=== PATIENT | male | born 1985 | race African-American/Black ===

== ENCOUNTER 2016-12-06 03:31 | Emergency (ER) | payer MEDICARE ==
[~2016-12-06] VITALS: Ht 182.9 cm; Wt 54.0 kg
[2016-12-06] MEDS ORDERED: OLANZAPINE 10 MG/VIAL IM ONE (04:15)
[2016-12-06 04:31] LABS: BASOPHILS % 0.7 % (0.0-2.0); EOSINOPHILS % 0.1 % (0.0-5.0); HEMATOCRIT. 45.6 % (42.0-52.0); HEMOGLOBIN. 15.8 g/dL (14.0-18.0); LYMPHOCYTES % 18.8 % (20.0-50.0); MEAN CORPUSCULAR HEMOGLOBIN 31.8 pg (28.0-32.0); MEAN CORPUSCULAR HGB CONC 34.6 g/dL (31.0-37.0); MEAN PLATELET VOLUME 8.9 fl (7.4-10.4); MONOCYTES % 10.2 % (2.0-8.0); NEUTROPHILS % 70.2 % (40.0-76.0); PLATELET 235 x1000/uL (130-400); RED BLOOD CELL COUNT 4.96 mill/uL (4.7-6.1); RED CELL DISTRIBUTION WIDTH 13.4 % (11.6-14.6); WHITE BLOOD COUNT 15.5 x1000/uL (4.5-11.0)
[2016-12-06 04:44] LABS: ANION GAP 19; CARBON DIOXIDE 23 mEq/L (21-32); CHLORIDE 102 mEq/L (98-107); UREA NITROGEN BLOOD 37 mg/dL (7-21)
[2016-12-06 04:45] LABS: ACETAMINOPHEN < 2 ug/mL (10-30); ALANINE AMINOTRANSFERASE 48 IU/L (13-61); CALCIUM 9.9 mg/dL (8.5-10.1); ETHANOL BLOOD < 10 mg/dL; INDEX HEMOLYSI 1 (1-3); INDEX ICTERIC 1 (1-4); INDEX LIPEMIC 1 (1-3); eGFR 48 mL/min (>60)
[2016-12-06] MEDS ORDERED: LORAZEPAM 2MG/ML CPJ IV ONE (06:00)
[2016-12-06 06:11] LABS: CLARITY URINE CLOUDY (CLEAR); COLOR URINE DARK YELLOW (YELLOW); GLUCOSE URINE NEGATIVE (NEGATIVE); KETONES URINE TRACE (NEGATIVE); LEUKOCYTE ESTERASE URINE NEGATIVE (NEGATIVE); NITRITE URINE NEGATIVE (NEGATIVE); OCCULT BLOOD URINE NEGATIVE (NEGATIVE); PROTEIN URINE 1+ (NEGATIVE); SPECIFIC GRAVITY URINE 1.025 (1.005-1.030)
[2016-12-06 06:38] LABS: SQUAMOUS EPITHELIAL CELL URINE FEW /lpf (RARE/1+)
[2016-12-06 06:40] LABS: RBC URINE 0-2 /hpf (0-2); WBC URINE 0-2 /hpf (0-2)
[2016-12-06 06:41] LABS: AMORPHOUS SEDIMENT URINE 1+ /lpf; BACTERIA URINE NONE SEEN
[2016-12-06 07:56] LABS: *AMPHETAMINES SCREEN URINE PRESUMTIVE POSITIVE (NEGATIVE); *BARBITURATES SCREEN URINE NEGATIVE (NEGATIVE); *BENZODIAZEPINES SCREEN URINE NEGATIVE (NEGATIVE); *COCAINE SCREEN URINE NEGATIVE (NEGATIVE); CANNABINOID URINE SCREEN PRESUMTIVE POSITIVE (NEGATIVE); ECSTASY MDMA SCREEN URINE CONF.TEST INDICATED (NEGATIVE); METHADONE URINE SCREEN NEGATIVE (NEGATIVE); OPIATES URINE SCREEN NEGATIVE (NEGATIVE); PHENCYCLIDINE URINE SCREEN NEGATIVE (NEGATIVE)
[2016-12-06 12:10] VITALS: BP 125/64
== END 2016-12-06 12:37 | disposition home or self-care (01) ==
LOC: ER 03:33
DX: F29 Unspecified psychosis not due to a substance or known physiological condition (principal); N28.9 Disorder of kidney and ureter, unspecified; R45.1 Restlessness and agitation
CPT/HCPCS: 36415; 51702; 80053; 80305; 80307; 80329; 81001; 85025; 96372; 99284; G0482; J2060; J3490

== ENCOUNTER 2016-12-07 00:57 | Emergency (ER) | payer MEDICARE ==
[~2016-12-07] VITALS: Ht 182.9 cm; Wt 81.0 kg
[2016-12-07 01:42] VITALS: BP 118/75
[2016-12-07] MEDS ORDERED: IBUPROFEN 800MG TABLET PO ONE (02:30)
== END 2016-12-07 02:52 | disposition home or self-care (01) ==
LOC: ER 01:02
DX: G89.29 Other chronic pain (principal); F17.200 Nicotine dependence, unspecified, uncomplicated
CPT/HCPCS: 99283